=== PATIENT | male | born 1990 | race Caucasian/White ===

== ENCOUNTER 2021-05-29 05:38 | Emergency (ER) | payer SELFPAY ==
[~2021-05-29] VITALS: Ht 177.8 cm; Wt 106.6 kg
[2021-05-29 05:38] VITALS: BP 145/80
--- NOTE | 2021-05-29 05:38 | NUR ---
TO CHAIR B, AMBULATORY, BROUGHT IN BY [facility] FOR PREBOOK.
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
[2021-05-29 06:00] VITALS: BP 145/80
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
== END 2021-05-29 06:00 ==
LOC: MED 05:38
DX: Z02.89 Encounter for other administrative examinations (principal); V89.2XXA Person injured in unspecified motor-vehicle accident, traffic, initial encounter; Y93.89 Activity, other specified; Y92.89 Other specified places as the place of occurrence of the external cause; Y99.8 Other external cause status
CPT/HCPCS: 99283